=== PATIENT | male | born 1990 | race Hispanic/Latino ===

== ENCOUNTER 2018-01-16 21:16 | Emergency (ER) | payer SELFPAY ==
[2018-01-16] MEDS ORDERED: SUCRALFATE 1GM/10ML UCUP ONE (22:30)
--- NOTE | 2018-01-16 23:24 | ER ---
Nurse's Notes [facility] Name: Henry Pandya Age: 27 yrs Sex: Male : 1990 Arrival Date: 01/16/2018 Time: 21:19 Bed 16 Private MD: Diagnosis: Epigastric pain Presentation: 01/16 21:39 Presenting complaint: Patient states: Epigastric pain for the past week. Denies N/V/D. aj1 Denies fever. Transition of care: patient was not received from another setting of care. Onset of symptoms was January 2018. Risk Assessment: Do you want to hurt yourself or someone else? Patient reports no desire to harm self or others. Initial Sepsis Screen: Does the patient meet any 2 criteria? No. Patient's initial sepsis screen is negative. Does the patient have a suspected source of infection? Yes: Acute abdominal pain. Care prior to arrival: None. 21:39 Method Of Arrival: Ambulatory aj1 21:39 Acuity: SOREN 3 aj1 Triage Assessment: 21:40 General: Appears in no apparent distress. comfortable, Behavior is calm, cooperative, aj1 appropriate for age. Pain: Complains of pain in epigastric area Pain currently is 3 out of 10 on a pain scale. Neuro: Level of Consciousness is awake, alert, obeys commands. Cardiovascular: Patient's skin is warm and dry. Respiratory: Airway is patent Respiratory effort is even, unlabored, Respiratory pattern is regular, symmetrical. GI: Reports upper abdominal pain, Patient currently denies diarrhea, nausea, vomiting. Historical: - Allergies: 21:40 No Known Allergies; aj1 - Home Meds: 21:40 None [Active]; aj1 - PMHx: 21:40 None; aj1 - PSHx: 21:40 None; aj1 - Immunization history:: Flu vaccine is up to date. - Social history:: Smoking status: Patient uses tobacco products, 2 cigarettes per day. - Ebola Screening: : Patient denies travel to an Ebola-affected area in the 21 days before illness onset. Screenin:46 Abuse screen: Denies threats or abuse. Denies injuries from another. Nutritional lp1 screening: No deficits noted. Tuberculosis screening: No symptoms or risk factors identified. Fall Risk None identified. Assessment: 21:55 General: Appears in no apparent distress. Behavior is appropriate for age. Pain: lp1 Complains of pain in epigastric area Pain currently is 6 out of 10 on a pain scale. Neuro: Level of Consciousness is awake, alert, obeys commands, Oriented to person, place, time, situation. Cardiovascular: Patient's skin is warm and dry. Respiratory: Respiratory effort is even, unlabored. GI: Abdomen is flat, Bowel sounds present X 4 quads. Abdomen is tender to palpation in epigastric area. : No signs and/or symptoms were reported regarding the genitourinary system. EENT: No signs and/or symptoms were reported regarding the EENT system. Derm: Skin is pink, warm \T\ dry. Musculoskeletal: No deficits noted. 23:11 Reassessment: Patient returned from Ultrasound at this time. lp1 Vital Signs: 21:40 BP 132 / 84; Pulse 81; Resp 18; Temp 98.4; Pulse Ox 99% on R/A; Pain 3/10; aj1 23:27 BP 134 / 91; Pulse 70; Resp 16; Pulse Ox 100% on R/A; lp1 ED Course: 21:19 Patient arrived in ED. al2 21:40 Triage completed. aj1 21:40 Arm band placed on Patient placed in an exam room. aj1 21:46 Noreen Zeng, RN is Primary Nurse. lp1 21:46 Lorri Varghese FNP-C is PHCP. snw 21:46 Narciso White MD is Attending Physician. rn 21:47 Narciso White MD is Attending Physician. snw 21:57 Patient has correct armband on for positive identification. lp1 22:29 Chest Single View XRAY In Process Unspecified. EDMS 23:06 US Abdomen Limited In Process Unspecified. EDMS 23:27 No provider procedures requiring assistance completed. Patient did not have IV access lp1 during this emergency room visit. Administered Medications: 22:12 CANCELLED (Duplicate Order): CarafATE 1 grams PO once lp1 22:12 CANCELLED (Duplicate Order): CarafATE 1 grams PO once snw 22:35 Drug: CarafATE 1 grams Route: PO; lp1 23:30 Follow up: Response: No adverse reaction lp1 Outcome: 23:24 Discharge ordered by MD. snw 23:47 Discharged to home ambulatory, with significant other. lp1 23:47 Condition: good 23:47 Discharge instructions given to patient, Instructed on discharge instructions, follow up and referral plans. medication usage, Demonstrated understanding of instructions, follow-up care, medications, Prescriptions given X 1. 23:47 Patient left the ED. lp1 Signatures: Dispatcher [employer] EDSana Chino, RN RN aj1 Lorri Varghese, FORGE HEATER-C FORGE HEATER-Csnw Narciso White MD MD rn Pena, Laura, RN RN lp1 Deedee Zuniga
--- NOTE | 2018-01-16 23:25 | EDPHYS ---
Physician Documentation [facility] Name: Henry Pandya Age: 27 yrs Sex: Male : 1990 Arrival Date: 01/16/2018 Time: 21:19 Bed 16 Private MD: ED Physician Narciso White HPI: 01/16 22:46 This 27 yrs old Male presents to ER via Ambulatory with complaints of snw Abdominal Pain. 22:46 The patient presents with abdominal pain in the epigastric area. Onset: The snw symptoms/episode began/occurred suddenly, 1 week(s) ago, and became persistent. The symptoms do not radiate. Associated signs and symptoms: none. The symptoms are described as burning. Severity of pain: At its worst the pain was mild moderate. The patient has not experienced similar symptoms in the past. It is unknown whether or not the patient has recently seen a physician. Historical: - Allergies: 21:40 No Known Allergies; aj1 - Home Meds: 21:40 None [Active]; aj1 - PMHx: 21:40 None; aj1 - PSHx: 21:40 None; aj1 - Immunization history:: Flu vaccine is up to date. - Social history:: Smoking status: Patient uses tobacco products, 2 cigarettes per day. - Ebola Screening: : Patient denies travel to an Ebola-affected area in the 21 days before illness onset. ROS: 22:45 Constitutional: Negative for fever, chills, and weight loss, Eyes: Negative for injury, snw pain, redness, and discharge, ENT: Negative for injury, pain, and discharge, Neck: Negative for injury, pain, and swelling, Cardiovascular: Negative for chest pain, palpitations, and edema, Respiratory: Negative for shortness of breath, cough, wheezing, and pleuritic chest pain, Back: Negative for injury and pain, : Negative for injury, bleeding, discharge, and swelling, MS/Extremity: Negative for injury and deformity, Skin: Negative for injury, rash, and discoloration, Neuro: Negative for headache, weakness, numbness, tingling, and seizure. 22:45 Abdomen/GI: Positive for abdominal pain, of the epigastric area, Negative for nausea and vomiting, diarrhea, constipation, abdominal distension, anorexia, hematemesis, black/tarry stool, rectal bleeding. Exam: 22:45 Constitutional: This is a well developed, well nourished patient who is awake, alert, snw and in no acute distress. Head/Face: Normocephalic, atraumatic. Eyes: Pupils equal round and reactive to light, extra-ocular motions intact. Lids and lashes normal. Conjunctiva and sclera are non-icteric and not injected. Cornea within normal limits. Periorbital areas with no swelling, redness, or edema. ENT: Nares patent. No nasal discharge, no septal abnormalities noted. Tympanic membranes are normal and external auditory canals are clear. Oropharynx with no redness, swelling, or masses, exudates, or evidence of obstruction, uvula midline. Mucous membranes moist. Neck: Trachea midline, no thyromegaly or masses palpated, and no cervical lymphadenopathy. Supple, full range of motion without nuchal rigidity, or vertebral point tenderness. No Meningismus. Chest/axilla: Normal chest wall appearance and motion. Nontender with no deformity. No lesions are appreciated. Cardiovascular: Regular rate and rhythm with a normal S1 and S2. No gallops, murmurs, or rubs. Normal PMI, no JVD. No pulse deficits. Respiratory: Lungs have equal breath sounds bilaterally, clear to auscultation and percussion. No rales, rhonchi or wheezes noted. No increased work of breathing, no retractions or nasal flaring. Abdomen/GI: Soft, non-tender, with normal bowel sounds. No distension or tympany. No guarding or rebound. No evidence of tenderness throughout. Back: No spinal tenderness. No costovertebral tenderness. Full range of motion. Skin: Warm, dry with normal turgor. Normal color with no rashes, no lesions, and no evidence of cellulitis. MS/ Extremity: Pulses equal, no cyanosis. Neurovascular intact. Full, normal range of motion. Neuro: Awake and alert, GCS 15, oriented to person, place, time, and situation. Cranial nerves II-XII grossly intact. Motor strength 5/5 in all extremities. Sensory grossly intact. Cerebellar exam normal. Normal gait. Psych: Awake, alert, with orientation to person, place and time. Behavior, mood, and affect are within normal limits. Vital Signs: 21:40 BP 132 / 84; Pulse 81; Resp 18; Temp 98.4; Pulse Ox 99% on R/A; Pain 3/10; aj1 23:27 BP 134 / 91; Pulse 70; Resp 16; Pulse Ox 100% on R/A; lp1 MDM: 22:12 Patient medically screened. snw 23:25 Data reviewed: vital signs, nurses notes. Data interpreted: Pulse oximetry: on room air snw is 99 %. Interpretation: normal. Counseling: I had a detailed discussion with the patient and/or guardian regarding: the historical points, exam findings, and any diagnostic results supporting the discharge/admit diagnosis, the presence of at least one elevated blood pressure reading (>120/80) during this emergency department visit, radiology results, the need for outpatient follow up, for definitive care. Physician consultation:. Special discussion: Based on the patient's Hx, exam, and Dx evaluation, there is no indication for emergent surgery or inpatient Tx. It is understood by the patient/guardian that if the Sx's persist or worsen they need to return immediately for re-evaluation. I have referred the patient to see his PCP for further evaluation of high blood pressure. Based on the history and exam findings, there is no indication for further emergent testing or inpatient evaluation. I discussed with the patient/guardian the need to see the automobile painter for further evaluation of the symptoms. I discussed with the patient/guardian the need to see the primary care provider for further evaluation of the symptoms. 01/16 21:48 Order name: US Abdomen Limited snw 01/16 22:12 Order name: Chest Single View XRAY snw Administered Medications: 22:12 CANCELLED (Duplicate Order): CarafATE 1 grams PO once lp1 22:12 CANCELLED (Duplicate Order): CarafATE 1 grams PO once snw 22:35 Drug: CarafATE 1 grams Route: PO; lp1 23:30 Follow up: Response: No adverse reaction lp1 Disposition: 01/17 05:14 Co-signature as Attending Physician, Narciso White MD. rn Disposition: 01/16/18 23:24 Discharged to Home. Impression: Epigastric pain. - Condition is Stable. - Discharge Instructions: Abdominal Pain, Adult, Gastritis, Adult, Gastroesophageal Reflux Disease, Adult, Upper Endoscopy, May Diet. - Prescriptions for Nexium 20 mg Oral Capsule - take 1 capsule by ORAL route once daily; 20 capsule. - Work release form, Medication Reconciliation Form, Thank You Letter, Antibiotic Education, Prescription Opioid Use form. - Follow up: Emergency Department; When: As needed; Reason: Worsening of condition. Follow up: Private Physician; When: 2 - 3 days; Reason: Recheck today's complaints, Continuance of care, Re-evaluation by your physician. Signatures: Dispatcher [employer] EDSana Chino RN RN aj1 Lorri Varghese, ADMINISTRATIVE SUPPORT SPECIALIST-C ADMINISTRATIVE SUPPORT SPECIALIST-Csnw Narciso White MD MD rn Pena, Laura, RN RN lp1 Corrections: (The following items were deleted from the chart) 01/16 22:12 22:12 CarafATE 1 grams PO once ordered. snw lp1 22:12 22:12 CarafATE 1 grams PO once ordered. lp1 sn 23:47 23:24 01/16/2018 23:24 Discharged to Home. Impression: Epigastric pain. Condition is lp1 Stable. Forms are Medication Reconciliation Form, Thank You Letter, Antibiotic Education, Prescription Opioid Use. Follow up: Emergency Department; When: As needed; Reason: Worsening of condition. Follow up: Private Physician; When: 2 - 3 days; Reason: Recheck today's complaints, Continuance of care, Re-evaluation by your physician. snw
--- NOTE | 2018-01-17 08:02 | RAD REPORT ---
EXAM DESCRIPTION: US - Abdomen Exam Limited - 01/16/2018 11:07 pm CLINICAL HISTORY: Abdominal pain. COMPARISON: None. FINDINGS: The gallbladder is contracted. This results in mild gallbladder wall thickening. A gallsto ne is not seen. The biliary tree is normal caliber. IMPRESSION: Contracted gallbladder. If the patient had recently eaten this would be normal. If the p atient was NPO this could indicate chronic cholecystitis
--- NOTE | 2018-01-17 08:03 | RAD REPORT ---
EXAM DESCRIPTION: Gautam Single View01/16/2018 10:29 pm CLINICAL HISTORY: Abdominal pain COMPARISON: none FINDINGS: The lungs appear clear of acute infiltrate. The heart is normal size. Free air is not see n beneath the diaphragm. Calcified granuloma is present within the left lung. IMPRESSION: No acute abnormalities displayed
== END 2018-01-16 23:47 | disposition home or self-care (01) ==
LOC: ER 21:16
DX: R10.13 Epigastric pain (principal); F17.210 Nicotine dependence, cigarettes, uncomplicated
CPT/HCPCS: 71045; 76705; 99283